=== PATIENT | male | born 1960 ===

== ENCOUNTER 2020-03-21 14:14 | Emergency (ER) | payer SELFPAY ==
[2020-03-21 14:45] VITALS: BP 173/89
--- NOTE | 2020-03-21 14:53 | Event Note ---
ED Screening Note Date of service: 03/21/20 Time: 14:52 ED Screening Note: 59-year-old male sent over by the outpatient clinic for for hospital admission, for acute renal failure. This initial assessment/diagnostic orders/clinical plan/treatment(s) is/are subject to change based on patients health status, clinical progression and re- assessment by fellow clinical providers in the ED. Further treatment and workup at subsequent clinical providers discretion. Patient/guardian urged not to elope from the ED as their condition may be serious if not clinically assessed and managed. Initial orders include: Labs, urine.
[2020-03-21 15:32] LABS: Calcium 8.9 mg/dL (8.4-10.2)
[2020-03-21 15:51] LABS: Basophils # (Auto) 0.1 K/mm3 (0.0-0.1); Basophils % (Auto) 0.9 % (0.0-1.8); Eosinophils # (Auto) 0.1 K/mm3 (0.0-0.4); Eosinophils % (Auto) 1.1 % (0.0-4.3); Hematocrit 40.3 % (35.5-45.6); Hemoglobin 13.6 gm/dl (11.8-15.2); Lymphocytes # (Auto) 1.5 K/mm3 (1.2-5.4); Lymphocytes % (Auto) 20.1 % (13.4-35.0); Mean Corpuscular HGB Conc 34 % (32-34); Mean Corpuscular Volume 93 fl (84-94); Monocytes # (Auto) 0.6 K/mm3 (0.0-0.8); Monocytes % (Auto) 7.5 % (0.0-7.3); Platelet Count 285 K/mm3 (140-440); Red Blood Count 4.33 M/mm3 (3.65-5.03); Red Cell Distribution Width 13.4 % (13.2-15.2)
[2020-03-21 18:22] LABS: Bilirubin,Urine NEG (Negative); Blood,Urine NEG (Negative); Color,Urine Amber (Yellow); Mucus,Urine FEW /HPF; Protein,Urine <15 mg/dL mg/dL (Negative); Urobilinogen,Urine < 2.0 mg/dL (<2.0)
[2020-03-21] MEDS: HYDROcodone/ACETAMINOPHEN 5-325 MG TAB PO ONE (18:58)
--- NOTE | 2020-03-21 19:01 | Emergency Department Report ---
ED Male HPI - General Chief complaint: Urogenital-Male Stated complaint: HBP/ARF/CONSTIPATION Time Seen by Provider: 03/21/20 18:19 Source: patient Mode of arrival: Ambulatory Limitations: Language Barrier - History of Present Illness Initial comments: 59-year-old male with no significant past medical history presents to the hospital complaining of difficulty urinating x1 week. Patient states he has to strain to go to the bathroom and has very little output every 15 minutes. He also reports constipation the last bowel movement 3 days ago. Moderate suprapubic tenderness worse with palpation reported. Patient has received work- up from outpatient clinic and has been treated with unknown antibiotic and pain medication. His results include negative urine culture after 36 hours of growth, BUN/creatinine of 32/2.23 with normal potassium 5. Mild elevated cholesterol at 268, ALT 84, PSA 20.70, and a ultrasound of the prostate showing moderate prostatomegaly with nonspecific calcifications. Prostate measures 5.8 x 7.2 x 7 cm with total volume of 150 cc. no c/o sob or cough - Related Data Previous Rx's Medication Instructions Recorded Last Taken Type Tamsulosin [Flomax] 0.4 mg PO QDAY #30 cap 03/21/20 Unknown Rx Allergies Allergy/AdvReac Type Severity Reaction Status Date / Time No Known Allergies Allergy Unverified 03/21/20 14:42 ED Review of Systems ROS: Stated complaint: HBP/ARF/CONSTIPATION Other details as noted in HPI ED Past Medical Hx - Social History Smoking Status: Never Smoker Substance Use Type: None - Medications Home Medications: Home Medications Medication Instructions Recorded Confirmed Last Taken Type Tamsulosin [Flomax] 0.4 mg PO QDAY #30 cap 03/21/20 Unknown Rx ED Physical Exam - General Limitations: Language Barrier ED Course Vital Signs 03/21/20 14:43 Temperature 99.9 F H Pulse Rate 83 Respiratory 18 Rate Blood Pressure 173/89 O2 Sat by Pulse 93 Oximetry - Consultations Consultation #1: 03/21/20 19:01 Case D/w Dr Leonardo urologist operation agent regarding urine retention, renal insuf, elevated psa. Rec biggs, flomax, outpt follow up/ ED Medical Decision Making - Lab Data Result diagrams: 03/21/20 15:03 03/21/20 15:03 Lab Results 03/21/20 03/21/20 03/21/20 Range/Units 15:03 15:03 17:57 WBC 7.5 (4.5-11.0) K/mm3 RBC 4.33 (3.65-5.03) M/mm3 Hgb 13.6 (11.8-15.2) gm/dl Hct 40.3 (35.5-45.6) % MCV 93 (84-94) fl MCH 31 (28-32) pg MCHC 34 (32-34) % RDW 13.4 (13.2-15.2) % Plt Count 285 (140-440) K/mm3 Lymph % (Auto) 20.1 (13.4-35.0) % [place] % (Auto) 7.5 H (0.0-7.3) % Eos % (Auto) 1.1 (0.0-4.3) % Baso % (Auto) 0.9 (0.0-1.8) % Lymph # (Auto) 1.5 (1.2-5.4) K/mm3 [place] # (Auto) 0.6 (0.0-0.8) K/mm3 Eos # (Auto) 0.1 (0.0-0.4) K/mm3 Baso # (Auto) 0.1 (0.0-0.1) K/mm3 Seg Neutrophils % 70.4 H (40.0-70.0) % Seg Neutrophils # 5.3 (1.8-7.7) K/mm3 Sodium 138 (137-145) mmol/L Potassium 4.6 (3.6-5.0) mmol/L Chloride 105.9 (98-107) mmol/L Carbon Dioxide 22 (22-30) mmol/L Anion Gap 15 mmol/L BUN 31 H (9-20) mg/dL Creatinine 2.6 H (0.8-1.3) mg/dL Estimated GFR 25 ml/min BUN/Creatinine Ratio 12 % Glucose 134 H (75-100) mg/dL Calcium 8.9 (8.4-10.2) mg/dL Total Bilirubin 0.30 (0.1-1.2) mg/dL AST 33 (5-40) units/L ALT 70 H (7-56) units/L Alkaline Phosphatase 73 (35-129) units/L Total Protein 7.0 (6.3-8.2) g/dL Albumin 4.0 (3.9-5) g/dL Albumin/Globulin Ratio 1.3 % Urine Color Amanda (Yellow) Urine Turbidity Clear (Clear) Urine pH 7.0 (5.0-7.0) Ur Specific [place] 1.012 (1.003-1.030) Urine Protein <15 mg/dl (Negative) mg/dL Urine Glucose (UA) Neg (Negative) mg/dL Urine Ketones Neg (Negative) mg/dL Urine Blood Neg (Negative) Urine Nitrite Pos (Negative) Urine Bilirubin Neg (Negative) Urine Urobilinogen < 2.0 (<2.0) mg/dL Ur Leukocyte Esterase Mod (Negative) Urine WBC (Auto) 19.0 H (0.0-6.0) /HPF Urine RBC (Auto) 2.0 (0.0-6.0) /HPF U Epithel Cells (Auto) 1.0 (0-13.0) /HPF Urine Mucus Few /HPF - Radiology Data Radiology results: report reviewed CT ABDOMEN PELVIS WITHOUT CONTRAST INDICATION / CLINICAL INFORMATION: urine retention, renal insuf, constipation. TECHNIQUE: Axial CT images were obtained through the abdomen and pelvis without IV contrast. All CT scans at this location are performed using CT dose reduction for ALARA by means of automated exposure control. COMPARISON: None available. FINDINGS: LOWER CHEST: No significant abnormality. LIVER: No significant abnormality. GALLBLADDER: No significant abnormality. BILE DUCTS: No significant abnormality. PANCREAS: No significant abnormality. SPLEEN: No significant abnormality. ADRENALS: No significant abnormality. RIGHT KIDNEY and URETER: Mild dilatation of the collecting system LEFT KIDNEY and URETER: Mild dilatation of the collecting system. STOMACH and SMALL BOWEL: No significant abnormality. COLON: No significant abnormality. APPENDIX: No significant abnormality. PERITONEUM: No free fluid. No free air. No fluid collection. LYMPH NODES: No significant adenopathy. AORTA and ARTERIES: No significant abnormality. IVC and VEINS: No significant abnormality. URINARY BLADDER: Urinary bladder distention REPRODUCTIVE ORGANS: Prostate enlargement ADDITIONAL FINDINGS: None. SKELETAL SYSTEM: No significant abnormality. IMPRESSION: 1. Probable bladder outlet obstruction - Medical Decision Making Patient had a 16 Faroese Biggs catheter placed in ED with immediate release of 1500 mL of urine output with continued draining. Patient reports feeling better. Suprapubic area now soft after Biggs catheter placement. No other acute abnormality seen on CT of the bladder outlet obstruction. Mild renal insufficiency noted. Urinary retention as well as renal sufficiency discussed with Dr. Leonardo urology and outpatient follow-up advised. Patient will be discharged on Flomax and with leg bag. Patient states he 7 days left of his unknown antibiotic. He was instructed to complete his current course of treatment. He did receive 1 dose of Macrobid in the ED this evening. Appliance Tester line used to explain diagnosis, prescription meds, and discharge plan Critical Care Time: No Critical care attestation.: If time is entered above; I have spent that time in minutes in the direct care of this critically ill patient, excluding procedure time. ED Disposition Clinical Impression: Urine retention, Enlarged prostate, Elevated PSA, Mild renal insufficiency, UTI (urinary tract infection) Disposition: OP ADMIT IP TO THIS HOSP Is pt being admited?: No Does the pt Need Aspirin: No Condition: Stable Instructions: Benign Prostatic Hyperplasia, Prostate-Specific Antigen Test, Urinary Tract Infection, Adult, Acute Urinary Retention, Male Additional Instructions: Take the medication as prescribed. Follow-up with your doctor or doctor/clinic provided. It is important that you follow-up with the urologist for further work-up of your enlarged prostate, Biggs catheter removal, evaluation for possible prostate cancer, and reassessment of your kidney function. Return if symptoms worsen as indicated by your discharge instructions. [place] el medicamento segn lo prescrito. Seguimiento con west mdico o mdico/clnica proporcionado. Es importante que realice un seguimiento con el urlogo para un mayor trabajo de la prstata agrandada, extirpacin del catter Biggs, evaluacin para un posible cncer de prstata y reevaluacin de la funci n renal. Regrese si los sntomas empeoran segn lo indicado por las instrucciones de callie. Prescriptions: Tamsulosin [Flomax] 0.4 mg PO QDAY #30 cap Referrals: MALOU MORRISSEY MD [Primary Care Provider] - 3-5 Days CALLUM LEONARDO MD [Staff Physician] - 3-5 Days (Urologist) Time of Disposition: 23:59 Print Language: HUNGARIAN
--- NOTE | 2020-03-21 19:46 | Cat Scan Report ---
CT ABDOMEN PELVIS WITHOUT CONTRAST INDICATION / CLINICAL INFORMATION: urine retention, renal insuf, constipation. TECHNIQUE: Axial CT images were obtained through the abdomen and pelvis without IV contrast. All CT scans at [facility] location are performed using CT dose reduction for ALARA by means of automated exposure control. COMPARISON: None available. FINDINGS: LOWER CHEST: No significant abnormality. LIVER: No significant abnormality. GALLBLADDER: No significant abnormality. BILE DUCTS: No significant abnormality. PANCREAS: No significant abnormality. SPLEEN: No significant abnormality. ADRENALS: No significant abnormality. RIGHT KIDNEY and URETER: Mild dilatation of the collecting system LEFT KIDNEY and URETER: Mild dilatation of the collecting system. STOMACH and SMALL BOWEL: No significant abnormality. COLON: No significant abnormality. APPENDIX: No significant abnormality. PERITONEUM: No free fluid. No free air. No fluid collection. LYMPH NODES: No significant adenopathy. AORTA and ARTERIES: No significant abnormality. IVC and VEINS: No significant abnormality. URINARY BLADDER: Urinary bladder distention REPRODUCTIVE ORGANS: Prostate enlargement ADDITIONAL FINDINGS: None. SKELETAL SYSTEM: No significant abnormality. IMPRESSION: 1. Probable bladder outlet obstruction Signer Name: Anthony Farrell MD Signed: 03/21/2020 7:42 PM Workstation Name: [id number]
[2020-03-21] MEDS: NITROFURANTOIN MONOHYD/M-CRYST 100 MG CAP PO ONE (21:57)
== END 2020-03-22 00:30 | disposition admitted as inpatient to this hospital (09) ==
LOC: ED 14:14
DX: R33.9 Retention of urine, unspecified (principal); N40.0 Benign prostatic hyperplasia without lower urinary tract symptoms; R97.0 Elevated carcinoembryonic antigen [CEA]; N28.9 Disorder of kidney and ureter, unspecified; N39.0 Urinary tract infection, site not specified; Z79.899 Other long term (current) drug therapy
CPT/HCPCS: 36415; 51702; 74176; 80053; 81001; 85025; 87086

== ENCOUNTER 2020-04-17 15:09 | Emergency (ER) | payer SELFPAY ==
--- NOTE | 2020-04-17 15:20 | Event Note ---
ED Screening Note ED Screening Note: Uzbek interpretation by Ms. Oliveira, network security consultant Patient presents for left-sided testicular pain, swelling, erythema, increased warmth that began 3 days ago He began having a fever 3 days ago He currently has a Dash in place which has been there since 03/21/2019 due to urinary retention Ripper Operator Anil Lamar PA-C There is significant erythema, edema, increased warmth to the left testicular and scrotal region Does not appear to involve the perineum or perianal region Ultrasound ordered Code sepsis initiated due to mild tachycardia and fever This initial assessment/diagnostic orders/clinical plan/treatment(s) is/are subject to change based on patients health status, clinical progression and re- assessment by fellow clinical providers in the ED. Further treatment and workup at subsequent clinical providers discretion. Patient/guardian urged not to elope from the ED as their condition may be serious if not clinically assessed and managed. Initial orders include: Sepsis protocol and testicular ultrasound
[2020-04-17] MEDS ORDERED: ACETAMINOPHEN 500 MG TAB PO ONE (15:22)
[2020-04-17 15:37] LABS: Basophils % (Auto) 0.2 % (0.0-1.8); Eosinophils % (Auto) 0.1 % (0.0-4.3); Hematocrit 40.4 % (35.5-45.6); Hemoglobin 13.9 gm/dl (11.8-15.2); Lymphocytes # (Auto) 1.1 K/mm3 (1.2-5.4); Lymphocytes % (Auto) 9.4 % (13.4-35.0); Mean Corpuscular HGB Conc 34 % (32-34); Mean Corpuscular Volume 90 fl (84-94); Monocytes # (Auto) 0.8 K/mm3 (0.0-0.8); Monocytes % (Auto) 6.8 % (0.0-7.3); Platelet Count 284 K/mm3 (140-440); Red Blood Count 4.48 M/mm3 (3.65-5.03)
[2020-04-17] MEDS ORDERED: PIPERACILLIN/TAZOBACTAM 3.375 3.375 GM/50 ML BAG IV ONE (15:38)
[2020-04-17] MEDS ORDERED: SODIUM CHLORIDE 0.9% 1000 ML 1,000 ML IV ONE ×2 (15:38→18:10)
--- NOTE | 2020-04-17 15:43 | Emergency Department Report ---
ED General Adult HPI - General Chief complaint: Urogenital-Male Stated complaint: TESTICAL SWELLING Time Seen by Provider: 04/17/20 15:18 Source: patient Mode of arrival: Ambulatory Limitations: Language Barrier - History of Present Illness Initial comments: Patient is 59 years old male with no significant past medical history. Patient was seen here 1 month ago for urine retention and had a Dash catheter placed in and advised to follow-up with urologist however patient did not. Patient presented to the ER complaining of left scrotal swelling, pain and redness for the last 3 days. Patient found to be febrile with a temperature of 102.1. Sepsis protocol immediately initiated patient received normal saline, Tylenol and Zosyn. Severity scale (0 -10): 10 - Related Data Previous Rx's Medication Instructions Recorded Last Taken Type Tamsulosin [Flomax] 0.4 mg PO QDAY #30 cap 03/21/20 Unknown Rx Allergies Allergy/AdvReac Type Severity Reaction Status Date / Time No Known Allergies Allergy Unverified 03/21/20 14:42 ED Review of Systems ROS: Stated complaint: TESTICAL SWELLING Other details as noted in HPI Comment: All other systems reviewed and negative Constitutional: denies: chills, fever Respiratory: denies: shortness of breath Cardiovascular: denies: chest pain, palpitations Gastrointestinal: denies: abdominal pain Genitourinary: urgency, testicular pain Neurological: denies: headache, weakness ED Past Medical Hx - Social History Smoking Status: Never Smoker Substance Use Type: None - Medications Home Medications: Home Medications Medication Instructions Recorded Confirmed Last Taken Type Tamsulosin [Flomax] 0.4 mg PO QDAY #30 cap 03/21/20 Unknown Rx ED Physical Exam - General Limitations: Language Barrier General appearance: alert, in no apparent distress - Head Head exam: Present: atraumatic, normocephalic, normal inspection - Eye Eye exam: Present: normal appearance, PERRL - ENT ENT exam: Present: normal exam, normal orophraynx, mucous membranes moist - Neck Neck exam: Present: normal inspection, full ROM. Absent: tenderness, meningismus - Respiratory Respiratory exam: Present: normal lung sounds bilaterally - Cardiovascular Cardiovascular Exam: Present: regular rate, normal rhythm, normal heart sounds - GI/Abdominal GI/Abdominal exam: Present: soft, normal bowel sounds. Absent: distended, tenderness, guarding, rebound, rigid, organomegaly, mass, bruit, pulsatile mass, hernia - exam: Present: scrotal swelling. Absent: testicular tenderness, urethral discharge External exam: Present: erythema, swelling. Absent: lesions, lacerations, ecchymosis, bleeding - Extremities Exam Extremities exam: Present: normal inspection, full ROM - Back Exam Back exam: Present: normal inspection. Absent: CVA tenderness (R), CVA ten derness (L) - Neurological Exam Neurological exam: Present: alert, oriented X3, CN II-XII intact - Psychiatric Psychiatric exam: Present: normal mood - Skin Skin exam: Present: warm, intact, normal color ED Course Vital Signs 04/17/20 04/17/20 04/17/20 15:12 15:28 17:25 Temperature 102.9 F H 98.6 F Pulse Rate 99 H 66 Respiratory 22 18 15 Rate Blood Pressure 158/87 Blood Pressure 109/53 [Right] O2 Sat by Pulse 96 96 Oximetry ED Medical Decision Making - Lab Data Result diagrams: 04/17/20 15:20 04/17/20 15:20 - Radiology Data Radiology results: report reviewed - Medical Decision Making Patient is 59 years old male with no significant past medical history. Patient was seen here 1 month ago for urine retention and had a Dash catheter placed in and advised to follow-up with urologist however patient did not. Patient presented to the ER complaining of left scrotal swelling, pain and redness for the last 3 days. Patient found to be febrile with a temperature of 102.1. Sepsis protocol immediately initiated patient received normal saline, Tylenol and Zosyn Labs reviewed and showed slightly elevated white blood cells and a slightly elevated lactic acid. Patient stated that he is feeling much better. Ultrasound of the testicles showed a epididymoorchitis. CT abdomen and pelvis showed acute diverticulitis. Again there is no clinical or radiological evidence of Yolanda's gangrene. Patient has a scheduled for a cystoscopy by his urologist today however patient was sent to the ER because of the fever. Patient given prescription for ciprofloxacin and Flagyl and advised to contact his urologist tomorrow for further management. Patient also advised to return to the ER if he develop any new symptoms. Critical care attestation.: If time is entered above; I have spent that time in minutes in the direct care of this critically ill patient, excluding procedure time. ED Disposition Clinical Impression: Epididymo-orchitis, acute, Acute diverticulitis Disposition: TO HOME OR SELFCARE Is pt being admited?: No Condition: Stable Instructions: Epididymitis (ED), Epididymitis, Diverticulitis Referrals: PRIMARY CARE,MD [Primary Care Provider] - 3-5 Days Forms: STI Treatment and Prevention Print Language: KENYAN
[2020-04-17 16:13] LABS: Alanine Aminotransferase 42 units/L (7-56); Albumin 4.5 g/dL (3.9-5); BUN/Creatinine Ratio 11; Blood Urea Nitrogen 10 mg/dL (9-20); Calcium 9.2 mg/dL (8.4-10.2); Hemolysis Index 5
--- NOTE | 2020-04-17 17:00 | Ultrasound Report ---
ULTRASOUND SCROTUM INDICATION / CLINICAL INFORMATION: left testicular pain, edema, erythema, warmth. COMPARISON: None available. FINDINGS -- RIGHT TESTIS: Size = 3.5 x 1.8 x 2.3 cm. - Appearance: No significant abnormality. - Cyst or Mass: None. - Color Doppler Flow: No significant abnormality. EPIDIDYMIS: No significant abnormality. HYDROCELE: Small. VARICOCELE: None demonstrated. FINDINGS -- LEFT TESTIS: Size = 3.8 x 2.7 x 3.0 cm. - Appearance: Slightly heterogeneous. - Cyst or Mass: None. - Color Doppler Flow: Increased Doppler flow/hyperemia. EPIDIDYMIS: Enlarged. HYDROCELE: Moderate with septations. VARICOCELE: None demonstrated. ADDITIONAL FINDINGS: None. IMPRESSION: 1. Heterogeneity and hyperemia of the left testicle and epididymis is most concerning for epididymoor chitis with associated moderate-sized hydrocele. Left-sided testicular torsion is less likely. 2. Small right-sided hydrocele. Signer Name: Anil Eduardo MD Signed: 04/17/2020 4:55 PM Workstation Name: [id number]
--- NOTE | 2020-04-17 17:23 | Cat Scan Report ---
CT abdomen pelvis w con INDICATION: left testicular/scrotal edema/erythema/warmth. COMPARISON: March [address] abdomen TECHNIQUE: Abdominal and pelvic CT exam performed. All CT scans at this location are performed using CT dose reduction for ALARA by means of automated exposure control. FINDINGS: CT ABDOMEN and PELVIS: Lung Bases: No significant abnormality. Liver: No significant abnormality. Biliary: No significant abnormality. Spleen: No significant abnormality. Pancreas: No significant abnormality. Adrenals: No significant abnormality. Kidneys: No significant abnormality. Lymphatics: No lymphadenopathy. Vasculature: No significant abnormality. Bowel: Colonic diverticulosis with mild short segment sigmoid colonic wall thickening with surroundin g stranding and a couple of small local lymph nodes. No organized collection. No pneumoperitoneum. Pelvis: Significantly enlarged prostate indenting the base of bladder. The bladder is decompressed vi a Dash catheter. There is associated increased enhancement of the left epididymis and testicle with left greater than right hydroceles. Vertex is consistent with left epididymoorchitis, please see ult rasound testicle same day. Osseous Structures: No aggressive osseous lesion. Additional Findings: None IMPRESSION: 1. Findings of possible mild uncomplicated diverticulitis involving the sigmoid colon. 2. Significantly enlarged prostate indenting the base of bladder. Can correlate PSA if clinically ind icated. 3. Left testicular findings correlate with testicular ultrasound performed same day and are most cons istent with epididymoorchitis. Signer Name: Jovanni Schwab MD Signed: 04/17/2020 5:18 PM Workstation Name: [id number]
[2020-04-17 19:23] VITALS: BP 108/63
[2020-04-17 20:11] LABS: Bacteria,Urine 1+ /HPF (Negative); Bilirubin,Urine NEG (Negative); Blood,Urine MOD (Negative); Color,Urine Straw (Yellow); Mucus,Urine FEW /HPF; Protein,Urine <15 mg/dL mg/dL (Negative); Urobilinogen,Urine < 2.0 mg/dL (<2.0)
== END 2020-04-17 20:03 | disposition home or self-care (01) ==
LOC: ED 15:09
DX: K57.92 Diverticulitis of intestine, part unspecified, without perforation or abscess without bleeding (principal); N45.3 Epididymo-orchitis; Z79.899 Other long term (current) drug therapy
CPT/HCPCS: 36415; 74177; 80053; 81001; 82140; 85025; 87040; 93975; 96361; 96365; 99284; J2543; J7030; Q9967